=== PATIENT | female | born 1985 | race Two or more races ===

== ENCOUNTER 2023-11-09 18:33 | Emergency (ER) | payer MEDICAID, OTHER ==
[~2023-11-09] VITALS: Ht 157.5 cm; Wt 83.0 kg
[2023-11-09] MEDS ORDERED: ZOFR4T PO (20:39)
[2023-11-09] MEDS ORDERED: DIPH50CA31 OR (20:39)
[2023-11-09] MEDS ORDERED: FAMO-161 PO (20:39)
[2023-11-09] MEDS: ONDANSETRON HCL 4 MG/2 ML VIAL IV ONE (21:19)
[2023-11-09] MEDS: DexAMETHasone SOD PHOS 10MG/1ML VIAL INJ IV ONE (21:19)
[2023-11-09] MEDS: diphenhdrAMINE HCL 50 MG/1 ML VL IV ONE (21:20)
[2023-11-09] MEDS: FAMOTIDINE (10MG/ML) 2ML VL IV ONE (21:20)
[2023-11-09] MEDS: SODIUM CHLORIDE 0.9% 1,000 ML IV ONE (21:21)
[2023-11-09 21:36] VITALS: TEMP 98.9
[2023-11-09 22:36] VITALS: BP 136/86; PULSE 91; RESP 20; O2SAT 98
== END 2023-11-09 22:36 | disposition home or self-care (01) ==
LOC: ER 18:33 → EDBD 18:33 → ER 22:36
DX: T78.40XA Allergy, unspecified, initial encounter (principal); Z90.49 Acquired absence of other specified parts of digestive tract; Z98.51 Tubal ligation status; X58.XXXA Exposure to other specified factors, initial encounter
CPT/HCPCS: 96374; 96375; 99284; J1100; J1200; J2405; J3490

== ENCOUNTER 2024-03-04 17:32 | Emergency (ER) | payer MEDICAID ==
[~2024-03-04] VITALS: Ht 152.4 cm; Wt 72.4 kg
[~2024-03-04 17:32] MED LIST: DIPH50CA31 OR; FAMO-161 PO; ZOFR4T PO
[2024-03-04 18:05] VITALS: BP 159/87; PULSE 102
[2024-03-04 18:14] VITALS: RESP 16; O2SAT 98
--- NOTE | 2024-03-04 18:57 | DVH ---
CHEST RADIOGRAPH Indication: COUGH Technique: Single frontal view of the chest was obtained Comparison: None FINDINGS: Lines and Tubes: None Lungs: No focal consolidation. Pleura: No effusion. No pneumothorax. Cardiomediastinal contours: Unremarkable Bones: No acute osseous abnormality. IMPRESSION: No acute cardiopulmonary disease.
--- NOTE | 2024-03-04 22:17 | ED.PDOC ---
SOB-HPI HPI Comments 38-year-old female complaining of cough congestion body aches x3 days. Has been having intermittent fevers x2 days. Nothing makes it better, nothing makes it worse. No chest pain no shortness a breath. 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 History Family History Family History: Reviewed,noncontributory to illness Social History Smoker: Non-Smoker Alcohol: Occasionally Drugs: Denies Drug Use Lives In: Home Constitutional: reports: fever, malaise; denies: chills, diaphoresis, fatigue, sweats, weakness, others EENTM: denies: blurred vision, double vision, ear bleeding, ear discharge, ear drainage, ear pain, ear ringing, eye pain, eye redness, hearing loss, mouth pain, mouth swelling, nasal discharge, nose bleeding, nose congestion, nose pain, photophobia, tearing, throat pain, throat swelling, voice changes, others Respiratory: reports: cough; denies: hemoptysis, orthopnea, SOB at rest, shortness of breath, SOB with excertion, stridor, wheezing, others Cardiovascular: denies: chest pain, dizzy spells, diaphoresis, Dyspnea on exertion, edema, irregular heart beat, left arm pain, lightheadedness, p alpitations, PND, syncope, others Gastrointestinal: denies: abdomen distended, abdominal pain, blood streaked bowels, constipated, diarrhea, dysphagia, difficulty swallowing, hematemesis, melena, nausea, poor appetite, poor fluid intake, rectal bleeding, rectal pain, vomiting, others Genitourinary: denies: abnormal vagina bleeding, burning, dyspareunia, dysuria, flank pain, frequency, hematuria, incontinence, pain, , vagina discharge, urgency, others Neurological: denies: dizziness, fainting, headache, left sided numbness, left sided weakness, numbness, paresthesia, pre-existing deficit, right sided numbness, right sided weakness, seizure, speech problems, tingling, tremors, weakness, others Musculoskeletal: denies: back pain, gout, joint pain, joint swelling, muscle pain, muscle stiffness, neck pain, others Physical Exam General Appearance: No Apparent Distress, Normal HEENT: Normal ENT Inspection, Pharynx Normal, TMs Normal Neck: Full Range of Motion, Non-Tender, Normal, Normal Inspection Respiratory: Chest Non-Tender, Lungs Clear, No Accessory Muscle Use, No Respir atory Distress, Normal Breath Sounds Cardiovascular: No Edema, No JVD, No Murmur, No Gallop, Normal Peripheral Pulses, Regular Rate/Rhythm Breast Exam: Deferred Gastrointestinal: No Organomegaly, Non Tender, No Pulsatile Mass, Normal Bowel Sounds, Soft Genitalia: Deferred Pelvic: Deferred Rectal: Deferred Extremities: No calf tenderness, Normal capillary refill, Normal inspection, Normal range of motion, Non-tender, No pedal edema Musculoskeletal : Apperance: Normal Neurologic: Alert, benefits consultant II-XII nml as Tested, No Motor Deficits, Normal Affect, Normal Mood, No Sensory Deficits Cerebellar Function: Normal Reflexes: Normal Skin: Dry, Normal Color, Warm Lymphatic: No Adenopathy Was a procedure done? Was a procedure done?: No Differential Dx Differential Diagnosis: Myocardial infarction, Panic Attack, Pneumonia, Sinusitis, Allergic Rhinitis, URI X-Ray, Labs, Meds, VS Vital Signs Date Time Temp Pulse Resp B/P (MAP) Pulse Ox O2 Delivery O2 Flow Rate FiO2 03/04/24 18:14 16 98 Room Air* 0 21 03/04/24 18:05 99.7 102 16 159/87 (111) 98 Lab Test 03/04/24 21:46 Range/Units Influenza Type A Antigen Positive Negative Influenza Type B Antigen Negative Negative SARS-CoV-2 Antigen (Rapid) Negative NEGATIVE X-Ray, Labs, Meds, VS Comment Imaging: X-rays and CT scans were reviewed and interpreted by this provider, imaging shows no fractures and no pathological disease. Pending radiology review. Laboratory: Labs reviewed and interpreted by this provider. Positive influenza Patient has prior medical visits reviewed. Med reconciliation performed Vital signs reviewed Time of 1ST Reevaluation: 22:36 Reevaluation 1ST: Improved Patient Education/Counseling: Diagnosis, Treatment, Need For Follow Up (Patient advised to follow-up in the emergency room in the next 24 to 48 hours if symptoms do not improve. Advised follow-up with PCP in the next 3 to 5 days. Patient verbalized understanding. ) Family Education/Counseling: Diagnosis Departure 1 Departure Time of Disposition: 22:34 Impression: Primary Impression: Influenza A Disposition: HOME / SELF CARE / HOMELESS Condition: Fair e-Prescriptions Promethazine-Dm (Promethazine Dm 6.25-15 mg/5Ml) 1 Wen Wen 5 ML PO TID PRN, #240 ML Prov: WOO TRIPATHI 03/04/24 Ibuprofen Micronized (Ibuprofen) 800 Mg Tab 800 MG PO TID PRN, #30 TAB Prov: WOO TRIPATHI 03/04/24 Oseltamivir Phosphate (Tamiflu) 75 Mg Cap 75 MG PO BID for 5 Days, #10 CAP Prov: WOO TRIPATHI 03/04/24 Discharged With: Self Critical Care Note Critical Care Time?: No Stability Stability form required: No Heart Score Heart Score: Heart Score Response (Comments) Value History N/A 0 EKG N/A 0 Age N/A 0 Risk Factors N/A 0 Troponin N/A 0 Total 0 WOO TRIPATHI Mar 04, 2024 22:17
[2024-03-04 22:31] LABS: COVID19 ANTIGEN SOFIA FIA NEGATIVE (NEGATIVE); Rapid Influenza A Positive (Negative); Rapid Influenza B Negative (Negative)
[2024-03-04] MEDS ORDERED: TAMIFLU PO (22:35)
[2024-03-04] MEDS ORDERED: IBUP-1455 PO (22:35)
[2024-03-04] MEDS ORDERED: PROM1SOL4 PO (22:35)
[2024-03-04] MEDS: KETOROLAC TROMETH 30 MG/ML 1ML VIAL IM ONE (23:23)
== END 2024-03-04 23:24 | disposition home or self-care (01) ==
LOC: ER 17:32
DX: J10.1 Influenza due to other identified influenza virus with other respiratory manifestations (principal); Z90.49 Acquired absence of other specified parts of digestive tract; Z98.890 Other specified postprocedural states; Z20.822 Contact with and (suspected) exposure to COVID-19
CPT/HCPCS: 36415; 71045; 87426; 87804; 96372; 99284; J1885